=== PATIENT | female | born 2000 | race Two or more races ===

== ENCOUNTER 2024-07-23 09:05 | Emergency (ER) | payer MEDICAID, SELFPAY ==
--- NOTE | ~2024-07-23 | US_ITS ---
EXAMINATION: US ABDOMEN LIMITED CLINICAL INFORMATION: Abnormal gallbladder on CT. COMPARISON: Same day CT abdomen/pelvis dated 07/23/2024 at 10:51 AM TECHNIQUE: Real-time imaging of the right upper quadrant abdominal viscera. FINDINGS: PANCREAS: Normal. LIVER: Normal. The liver is normal in size. The liver contour is normal. Parenchymal echogenicity is normal. No focal hepatic lesion. There is no intrahepatic biliary duct dilatation seen. GALLBLADDER: Multiple gallstones, including a 8 mm stone in the gallbladder neck concerning for impacted stone given immobility on decubitus positioning. The gallbladder is distended but there is no wall thickening or pericholecystic fluid. COMMON BILE DUCT: Normal in caliber measuring 0.5 cm in diameter. FREE FLUID: None. US/US abdomen limited IMPRESSION: Cholelithiasis with concern for an 8 mm impacted stone at the gallbladder neck given immobility on decubitus positioning. The gallbladder is distended but without wall thickening or pericholecystic fluid to suggest acute cholecystitis. Electronically signed by: Mónica Marks MD 07/23/2024 02:07 PM [facility]
--- NOTE | ~2024-07-23 | CT_ITS ---
EXAMINATION: CT ABDOMEN AND PELVIS WITHOUT CONTRAST CLINICAL INFORMATION: Right-sided abdominal pain COMPARISON: None available. TECHNIQUE: Multidetector volumetric imaging was performed from the superior aspect of the liver through the pubic symphysis. Sagittal and coronal reformatted images were obtained on the technologist's workstation. This CT examination was performed using dose optimization techniques as appropriate, variously including the following: *Automated exposure control *Adjustment of mA and/or kV according to patient size (this includes techniques or standardized protocols for targeted exams where dose is matched to indication/reason for exam; i.e. extremities or head) *Use of iterative reconstruction technique DLP: 380 mGy-cm FINDINGS: LUNG BASES: The visualized lung bases are unremarkable. LIVER, GALLBLADDER, AND BILIARY TREE: The liver is normal in size, shape, and attenuation. No focal hepatic lesion or biliary ductal dilatation is present. The gallbladder is distended with several radiopaque gallstones. No wall thickening seen. PANCREAS: Unremarkable. SPLEEN: Unremarkable. ADRENAL GLANDS: Unremarkable. KIDNEYS AND URETERS: The kidneys are normal in size, shape, and attenuation. No hydronephrosis, hydroureter, or calculi seen. No perinephric stranding. BLADDER: Unremarkable. GASTROINTESTINAL TRACT: The stomach is distended with recently ingested food. The small bowel loops are normal caliber. There is scattered stool and gas in the colon without distention. Appendix is normal caliber ABDOMINAL WALL: No significant hernia is appreciated. LYMPH NODES: Normal. VASCULAR: Unremarkable. PELVIC VISCERA: The uterus is anteverted and appears unremarkable. No free air or free fluid seen. OSSEOUS STRUCTURES: No aggressive lytic or sclerotic process seen. CT/CT abdomen pelvis wo IV con IMPRESSION: Cholelithiasis without wall thickening. Otherwise no acute intra-abdominal process seen. Fleischner guidelines were followed. Electronically signed by: Akhil Gleason MD 07/23/2024 11:51 AM [facility]
[2024-07-23 09:07] VITALS: BP 124/79; PULSE 73; RESP 15; TEMP 37.1; O2SAT 99; BMI 23.7
--- NOTE | 2024-07-23 10:15 | ED.ABDPAIN ---
HPI - Abdominal Pain General Chief Complaint: Abdominal Pain Stated Complaint: r flank pain Time Seen by Provider: 07/23/24 09:58 Source: patient, family and operating engineer Mode of arrival: ambulatory Limitations: no limitations History of Present Illness ED Provider: DR. Ji HPI narrative: 24-year-old female came in for evaluation of right-sided abdominal pain started since last night around 22:00, last meal was a burger sandwich no sick contacts, no recent travel, no recent use of antibiotic, pain is localized to the bright side of the abdomen with no radiation, no nausea or vomiting with the pain, no dysuria, no frequency urination, no blood in the urine. No history of intra-abdominal surgery, last bowel movement was yesterday and was normal. Related Data Allergies Allergy/AdvReac Type Severity Reaction Status Date / Time No Known Allergies Allergy Verified 07/23/24 09:09 Review of Systems Review of Systems All other systems are reviewed and are negative Constitutional: Reports as per HPI and Reports no additional constitutional complaints Eyes: Reports as per HPI and Reports no additional eye complaints Reports system reviewed and no additional complaints, except as documented Cardiovascular: Reports as per HPI and Reports no additional cardiovascular complaints Respiratory: Reports as per HPI and Reports no additional respiratory complaints Gastrointestinal: Reports as per HPI and Reports no additional gastrointestinal complaints Genitourinary: Reports no additional female genitourinary complaints Musculoskeletal: Reports no additional musculoskeletal complaints Skin/Breast: Reports system reviewed and no additional complaints, except as docu Psychiatric: Reports no additional psychiatric complaints Endocrine: Reports no additional endocrine complaints Hematologic/Lymphatic: Reports no additional hematologic/lymphatic complaints Allergic/Immunologic: Reports no additional allergic/immunologic complaints Reports system reviewed and no additional complaints, except as documented and Reports Abnormal speech present [facility] Social History Social History Smoked in Last 30 Days: No Use of substances other than those prescribed or required for medical reasons: No Advance Directives: No Advance Directives Information Provided: No Patient : No Physical Exam ED Vital Signs: Vital Signs - 24 hr 07/23/24 09:07 07/23/24 10:30 07/23/24 12:27 Temperature 98.7 F 98.9 F 98.4 F Pulse Rate 73 84 82 Respiratory Rate 15 16 16 Blood Pressure 124/79 114/72 104/52 L Pulse Oximetry 99 98 97 Oxygen Delivery Method Room Air Room Air Room Air BMI result Body Mass Index 23.7 Vital signs have been reviewed and appear to be correct. Blood pressure elevated. Heart rate normal. Respiratory rate normal. Temperature normal. Oxygen saturation normal. Appearance: Alert. Oriented X3. No acute distress. Head: Normal external exam. Normocephalic. Atraumatic. No Pollock signs noted. No raccoon eyes noted Eyes: PERRLA. EOMI. Conjunctiva and sclera normal. Eyelids normal. ENT: TM's Normal. Pharynx normal. Uvula midline. Moist mucous membranes. No trismus noted. No drooling noted. No muffled voice noted. Neck: Normal inspection. Neck supple. FROM. No adenopathy. Thyroid Normal. No meningeal signs. No neck mass noted. CVS: Normal heart rate and rhythm. Heart sound normal. No murmurs noted. Pulses normal throughout. Respiratory: No respiratory distress. Painless inspiration. Breath sounds normal. No wheezes/rales/rhonchi noted. Chest nontender. No accessory muscle usage noted or decreased air movement noted. Abdomen: Soft , right-sided abdominal tenderness , RUQ tenderness, no guarding, no rebound tenderness.. Bowel sounds normal in all 4 quadrants. No distention noted. No organomegaly noted. No visible injury noted. Back: No CVA tenderness. Full range of motion noted. Skin: Skin warm and dry. Normal skin color. Normal skin turgor. No rashes/lesions/lacerations noted. Extremities: No lower extremity edema. Extremities exhibit normal range of motion. Extremities nontender. Neuro: Oriented X 3. Cranial nerve exam: II-XII are grossly intact No motor deficit. No sensory deficit. Reflexes normal. Course Reevaluation(s) Reevaluation #1: patient feels better now, no nausea, no vomiting, pain is gone. Patient was instructed to avoid eating greasy, and follow-up with Dr. Olivarez as an outpatient Time: 14:20 Medical Decision Making Differential Diagnosis Differential Diagnoses: The differential diagnosis associated with the presentation includes ( acute appendicitis, acute pancreatitis, acute colitis, UTI, pyelonephritis, .) Admission/Observation Consideration of admission/observation: Escalation of care including admission/observation considered Lab Data MDM Lab Attestation statement: I reviewed the patient's lab results. 07/23/24 10:17 07/23/24 10:16 Labs: Lab Results 07/23/24 07/23/24 07/23/24 Range/Units 10:16 10:17 10:20 WBC 10.9 H (4.8-10.8) X10*3/uL RBC 5.10 (4.20-5.50) X10*6/uL Hgb 15.3 (12.0-16.0) g/dl Hct 43.0 (37.0-47.0) % MCV 84.3 (80.0-98.0) fL MCH 30.0 (27.0-33.0) pg MCHC 35.6 H (31.0-35.0) g/dl RDW 13.0 (11.0-16.0) % Plt Count 332 (160-400) X10*3/uL MPV 9.1 L (9.4-12.3) fL Immature Gran % (Auto) 0.4 (0.0-0.4) % Neut % (Auto) 72.9 (45-73) % Lymph % (Auto) 19.8 L (20-40) % Bryan % (Auto) 6.1 (2-11) % Eos % (Auto) 0.6 (0-4) % Baso % (Auto) 0.2 (0-2) % Lymph # (Auto) 2.2 (1.2-4.9) X10*3/uL Bryan # (Auto) 0.7 (0.1-1.2) X10*3/uL Eos # (Auto) 0.1 (0.0-0.4) X10*3/uL Baso # (Auto) 0.0 (0.0-0.2) X10*3/uL Abs Immat Gran (auto) 0.04 H (0.00-0.03) X10*3/uL Absolute Neuts (auto) 7.9 (2.0-8.3) x10*3/uL Absolute Nucleated RBC 0.000 (0.0-0.012) X10*3/uL Nucleated RBC % (auto) 0.0 (0.0-0.2) /100WBC Sodium 140 (135-145) mmol/L Potassium 3.6 (3.3-5.1) mmol/L Chloride 108 (96-108) mmol/L Carbon Dioxide 21 L (22-29) mmol/L Anion Gap 15 (12-20) BUN 13 (9-16) mg/dL Creatinine 0.68 (0.5-1.4) mg/dL Estim Creat Clear Calc 98.3 Estimated GFR > 60 Random Glucose 102 (60-115) mg/dL Calcium 10.0 (8.4-10.2) mg/dL Total Bilirubin 0.4 (0.0-1.0) mg/dL Direct Bilirubin 0.1 (0.0-0.5) mg/dL AST 24 (5-31) U/L ALT 23 (0-31) U/L Alkaline Phosphatase 109 (39-117) U/L Total Protein 7.9 (6.5-8.0) g/dL Albumin 4.8 (3.5-5.0) g/dL Lipase 17 (8-78) U/L Beta HCG, Quant < 2 mIU/mL Urine Color Yellow Urine Appearance Clear Urine pH 6.0 (5.0-9.0) Ur Specific [place] >= 1.030 H (1.005-1.025) Urine Protein Negative (Neg-Trace) mg/dL Urine Glucose (UA) Negative (Negative) mg/dL Urine Ketones Negative (Negative) mg/dL Urine Blood Negative (Negative) Urine Nitrite Negative (Negative) Ur Leukocyte Esterase Negative (Negative) Urine RBC 0-2 (0-2) /HPF Urine WBC 0-5 (0-5) /HPF Ur Squamous Epith Cells 6-10 (0-2) /HPF Urine Bacteria Trace (None Seen) Hyaline Casts 0-2 (0-2) /LPF Urine Test NEGATIVE (NEGATIVE) Independent Interpretation I performed an independent interpretation of an: Ultrasound ( Gallbladder:Cholelithiasis with concern for an 8 mm impacted stone at the gallbladder neck given immobility on decubitus positioning. The gallbladder is distended but without wall thickening or pericholecystic fluid to suggest acute cholecystitis.) and CT Scan ( Abdomen pelvis:Cholelithiasis without wall thickening. Otherwise no acute intra-abdominal process seen. ) Radiology Impression Discussion of test interpretation with radiology: I have reviewed the radiologist's reading. Medications Administered Discontinued Medications Generic Name Dose Route Start Last Admin Trade Name Freq PRN Reason Stop Dose Admin Ketorolac Tromethamine 15 mg 07/23/24 10:14 07/23/24 10:24 Ketorolac Tromethamine 15 Mg/Ml Vial IVPUSH 07/23/24 10:15 15 mg ONCE ONE Administration Morphine Sulfate 1 mg 07/23/24 10:14 07/23/24 10:24 Morphine Sulfate 2 Mg/Ml Cartridge IVPUSH 07/23/24 10:15 1 mg ONCE ONE Administration Protocol Discharge Plan Discharge Clinical Impression: Cholelithiasis Patient Disposition: Home, Self-Care Instructions: Gallstones (ED) Additional Instructions: avoid eating greasy food or fried food. Drink plenty of fluids. Follow-up with the surgeon as we discussed. Seek immediate medical attention for fever chills or worsening of the abdominal pain. Referrals: Rodrick Olivarez MD [Physician] - Print Language: Danish
[2024-07-23] MEDS: Morphine Sulfate 2 MG/ML CARTRIDGE 1 MG IVPUSH (10:24)
[2024-07-23] MEDS: Ketorolac Tromethamine 15 MG/ML VIAL IVPUSH (10:24)
[2024-07-23 10:25] LABS: MANUAL DIFF FLAG NO
[2024-07-23 10:26] LABS: Basophils Percent Auto 0.2 % (0-2); Eosinophils Absolute Auto 0.1 X10*3/uL (0.0-0.4); Eosinophils Percent Auto 0.6 % (0-4); Hemoglobin 15.3 g/dl (12.0-16.0); Imm Gran Abs Auto 0.04 X10*3/uL (0.00-0.03); Imm Gran Pct Auto 0.4 % (0.0-0.4); Lymphocytes Absolute Auto 2.2 X10*3/uL (1.2-4.9); Lymphocytes Percent Auto 19.8 % (20-40); Mean Corpuscular HGB Conc 35.6 g/dl (31.0-35.0); Mean Corpuscular Volume 84.3 fL (80.0-98.0); Mean Platelet Volume 9.1 fL (9.4-12.3); Monocytes Absolute Auto 0.7 X10*3/uL (0.1-1.2); Monocytes Percent Auto 6.1 % (2-11); Neutrophils Absolute Auto 7.9 x10*3/uL (2.0-8.3); Neutrophils Percent Auto 72.9 % (45-73); Platelet Count 332 X10*3/uL (160-400); White Blood Count 10.9 X10*3/uL (4.8-10.8)
[2024-07-23 10:27] LABS: Appearance Urine Clear; Color Urine Yellow; Glucose Urine UA Negative (Negative); Leukocyte Esterase Urine Negative (Negative); Nitrite Urine Negative (Negative); Specific Gravity - Urine >= 1.030 (1.005-1.025); Urine Blood Negative (Negative); Urine Ketones Negative (Negative); Urine Protein Negative (Neg-Trace)
[2024-07-23 10:30] VITALS: BP 114/72; PULSE 84; RESP 16; TEMP 37.2; O2SAT 98
--- NOTE | 2024-07-23 10:30 | PC.NURSE ---
family bedside for territory development manager services. a&ox4. vss and up to date. pt presents to the ED c/o 06/22 RUQ pain radiating to right flank x yesterday. pt report sx started around 2300. denies aggravating factors/n/v/d/fever/chills/urinary sx. 20gIV placed in the right AC - labs obtained/sent to lab. urine obtained/sent to lab by tech. pt waiting for CT to be completed. no sob/wob noted. respirations even/unlabored. plan of care ongoing.
[2024-07-23 10:32] LABS: Bacteria Urine Trace (None Seen); Hyaline Casts Urine 0-2 /LPF (0-2); RBC Urine 0-2 /HPF (0-2); WBC Urine 0-5 /HPF (0-5)
[2024-07-23 10:41] LABS: Anion Gap 15 (12-20); Blood Urea Nitrogen 13 mg/dL (9-16); Carbon Dioxide 21 mmol/L (22-29); Chloride 108 mmol/L (96-108); Creatinine Clr Calc Pharmacy 98.3; Estimated Glomerular Filt Rate > 60; Glucose Random 102 mg/dL (60-115); Potassium 3.6 mmol/L (3.3-5.1); Sodium 140 mmol/L (135-145)
[2024-07-23 10:49] LABS: Alanine Aminotransferase 23 U/L (0-31); Albumin Level 4.8 g/dL (3.5-5.0); Alkaline Phosphatase 109 U/L (39-117); Aspartate Amino Transferase 24 U/L (5-31); Bilirubin Direct 0.1 mg/dL (0.0-0.5); Bilirubin Total 0.4 mg/dL (0.0-1.0); Lipase 17 U/L (8-78); Total Protein 7.9 g/dL (6.5-8.0)
[2024-07-23 10:51] LABS: HCG Quantitative < 2 mIU/mL
[2024-07-23 11:05] LABS: UPreg QC Valid YES; Urine Pregnancy NEGATIVE (NEGATIVE)
--- NOTE | 2024-07-23 11:20 | PC.NURSE ---
pt verbalizing pain level has decreased to a 5/[address] results pending at this time. no sob/wob noted. respirations remain even/unlabored. family bedside for support. plan of care ongoing. call warner placed within reach.
[2024-07-23 12:27] VITALS: BP 104/52; PULSE 82; RESP 16; TEMP 36.9; O2SAT 97
[2024-07-23 15:33] VITALS: BP 101/62; PULSE 69; RESP 16; TEMP 36.8; O2SAT 99
== END 2024-07-23 15:34 | disposition home or self-care (01) ==
PROVIDERS: Nurse Practitioner Family; Emergency Provider Emergency Medicine
DX: K80.20 Calculus of gallbladder without cholecystitis without obstruction (principal); R10.2 Pelvic and perineal pain; Z79.899 Other long term (current) drug therapy
CPT/HCPCS: 36415; 74176; 76705; 80048; 80076; 81001; 81025; 83690; 84702; 85025; 96374; 96375; 99284; J1885; J2270

== ENCOUNTER 2024-08-01 10:13 | Outpatient (AMB) | payer MEDICAID, SELFPAY ==
--- NOTE | 2024-08-01 10:15 | A.OFFVIS_ITS ---
Vital Signs 08/01/24 10:25 Height 5 ft Weight 121 lb 6 oz BMI 23.7 BP 118/57 L Blood Pressure Location Lt brachial Position Sitting Pulse 85 Intake Visit Reasons: gallbladder Intake Note: Patient is seen in office for ER follow up visit, following gallbladder. Pt c/o: symptoms started a year ago and then went away until now, pain in the RUQ, worse at night, denies n/v/d/c, denies prior surgeries ED/US/CT: 07/23/24 Digital Marketing Consultant Required: Yes Digital Marketing Consultant Language: Enforcement Safety Officer Name: Sarah FERNANDES Information Interpreted: non-clinical & clinical Electrician Apprentice: Electrician Apprentice Present Accompanied by: Self / Same As Patient Allergies No Known Allergies Allergy (Verified 07/23/24 09:09) Medication List - Last Reconciled 08/01/24 by Rodrick Olivarez MD No Known Home Meds HPI Comments Details: 24-year-old female patient presenting with complaints of abdominal pain in the right upper quadrant which began at approximately 01:00 o'clock in the morning and awoke her from sleep. This occurred approximately 1 week prior to examination. She denied any prior episodes of similar pain. She denied nausea or vomiting. The pain lasted approximately 4 hours and improved after taking Motrin. Subsequent workup with a CT abdomen and pelvis and ultrasound confirmed gallstones within the gallbladder with no secondary evidence of acute cholecystitis. Since this time she has not had any further symptoms denies any abdominal pain at this time. She denies fever, chills, diarrhea or constipation. [facility] Medical History (Updated 08/01/24 @ 10:42 by Rodrick Olivarez MD) Biliary colic Social History Alcohol intake: never Patient Tobacco Use Status: Never used Tobacco Review of Systems Const All systems reviewed & are unremarkable except as noted in HPI and below Physical Exam Vital Signs: Last Vital Signs Pulse 85 08/01/24 10:25 BP 118/57 L 08/01/24 10:25 BMI result Body Mass Index 23.7 Const General: cooperative and no acute distress Nutritional Appearance: well nourished Orientation/consciousness: patient oriented x3 Limitations: no limitations HEENT Head: Yes normocephalic and Yes atraumatic Ears: hearing grossly normal bilaterally Resp Effort & Inspection: normal respiratory effort, no audible wheezes, no cough and no respiratory distress Cardio Jugular venous distension: no JVD GI Inspection: Yes normal to inspection Palpation (GI): Soft to palpation, nontender, no guarding, not rigid, no hernias and no masses Skin Other: Warm, dry, no rash Neuro General: patient oriented x3 Extrem General: Yes no clubbing, cyanosis or edema Assessment & Plan Assessment & Plan (1) Biliary colic: Code(s): K80.50 - Calculus of bile duct without cholangitis or cholecystitis without obstruction Category: Medical Plan 24-year-old female patient with a single episode of abdominal pain in the right upper quadrant found to have gallstones within the gallbladder by both CT and ultrasound. Patient's symptoms have subsequently resolved and she is currently symptom-free. I discussed the CT and ultrasound findings in detail and discussed indications for laparoscopic or possible open cholecystectomy. As she is feeling well now no surgical intervention is necessary a lesser symptoms return or become more frequent and more severe. She expressed understanding and will call our office should her symptoms progress. Coding Level of Care Code New Pt Level 4 (99194) Diagnoses Biliary colic K80.50
[2024-08-01 10:25] VITALS: BP 118/57; PULSE 85; BMI 23.7
== END 2024-08-01 10:46 | disposition home or self-care (01) ==
PROVIDERS: PCP Registered Nurse; Visit Provider Surgery
DX: K80.50 Calculus of bile duct without cholangitis or cholecystitis without obstruction (principal)
CPT/HCPCS: 99204

== ENCOUNTER → 2024-08-01 10:13 | Outpatient (BNVA) | payer MEDICAID, SELFPAY | PROVIDERS: PCP Registered Nurse; Visit Provider Surgery | DX: K80.50 Calculus of bile duct without cholangitis or cholecystitis without obstruction (principal) | CPT/HCPCS: 99202 ==